=== PATIENT | female | born 1995 | race Caucasian/White ===

== ENCOUNTER 2016-10-16 18:40 | Emergency (ER) | payer OTHER ==
[~2016-10-16] VITALS: Ht 170.2 cm; Wt 61.2 kg
--- NOTE | ~2016-10-16 | CT71 ---
[facility] A Service of [facility] & [facility] RADIOLOGY TEXT RESULTS PATIENT: MONROE GARAY LOCATION: [facility] : [birth year] UNIT #: [id number] AGE: [address]: Carlos Arellano MD SEX: F ORDER DR: [id number] [facility]. [place], [place] [address] [id number] MR#: [id number] Acc #: [id number] NAME: MONROE GARAY : 1995 SEX: F STUDY DATE/TIME: 10/16/2016 20:17 UNIT: [facility] ROOM: STUDY DESCRIPTION: CT Head Wo Contrast Attending Physician: Carlos Arellano M.D. Ordering Physician: Carlos Arellano M.D. Primary Care Physician: Primary Care Physician No MEDICAL IMAGING REPORT This report is preliminary unless electronic signature is present EXAM CT no contrast 10/16/2016 INDICATIONS Headache 2 days base of skull headache extending down the middle of the neck for [address] brain was performed. This CT exam was performed with one or more of the following radiation dose reduction techniques: automatic exposure control, adjustment of mA and/or kV according to patient size, and iterative reconstruction. COMPARISON We have no comparisons FINDINGS Sulci and ventricles unremarkable. No midline shift. No evidence of acute intracranial hemorrhage. There is no mass, mass effect or edema to suggest acute infarct and no extraaxial fluid collections are present. Globes are intact. Bones are intact. Chronic-appearing sinus disease involves the sphenoid sinuses and to a lesser extent the ethmoid sinuses. There is a radiopaque metallic BB measuring 5 mm at the level of the anterior ethmoid sinuses on the left. Correlate with any history of prior trauma. This appears to be a chronic finding. IMPRESSION 1. No clearly acute intracranial process. No evidence of acute intracranial hemorrhage. 2. Sinus disease likely chronic in nature although there could be a [id number] components. 3. Retained opaque metallic BB at the level of the left ethmoid sinus. Correlate with any history of prior trauma. This appears to be [facility] A Service of [facility] RADIOLOGY TEXT RESULTS PATIENT: MONROE GARAY LOCATION: [facility] : [birth year] UNIT #: [id number] AGE: [address]: Carlos Arellano MD SEX: F ORDER DR: chronic. Dictated by... Victor M Mareie M.D. THIS IS AN ELECTRONICALLY VERIFIED REPORT Victor M Mariee M.D. at 10/17/2016 9:28 PM ARNOLD/armando TD: 10/17/2016 16:17 JOB #: [id number] MEDICAL IMAGING REPORT Page 1 of 1 COPY
[~2016-10-16 18:40] MED LIST: MOTRIN400 MG PO
== END 2016-10-16 21:15 | disposition home or self-care (01) ==
LOC: CED 18:40
DX: J32.9 Chronic sinusitis, unspecified (principal); F17.200 Nicotine dependence, unspecified, uncomplicated
CPT/HCPCS: 70450; 84703; 96372; 99284; J1885